=== PATIENT | male | born 1955 | race Caucasian/White ===

== ENCOUNTER 2016-12-07 03:23 | Emergency (ER) | payer OTHER ==
[2016-12-07 04:28] LABS: BILIRUBIN NEGATIVE (NEGATIVE); BLOOD 3+ Ery/uL (NEGATIVE); CLARITY CLEAR (CLEAR); COLOR YELLOW (YELLOW); GLUCOSE (U) NORMAL (NORMAL); KETONE (U) TRACE mg/dL (NEGATIVE); LEUKOCYTES NEGATIVE Leu/uL (NEGATIVE); NITRITE NEGATIVE (NEGATIVE); PROTEIN NEGATIVE (NEGATIVE); SPECIFIC GRAVITY 1.025 (1.001-1.030); pH 5.5 (5.0-9.0)
[2016-12-07 04:35] LABS: MUCOUS LARGE
[2016-12-07 04:55] LABS: BASOPHIL 0.3 % (0-2); EOSINOPHIL 4.2 % (0-5); HCT 43.1 % (42.0-52.0); LYMPHOCYTE 35.4 % (15-48); MCH 33.1 pg (25.0-31.0); MCHC 34.8 g/dL (32.0-36.0); MCV 95.1 fL (78.0-100.0); MONOCYTE 14.4 % (0-12); MPV 10.3 fL (6.0-9.5); NEUTROPHIL 45.7 % (41-80); PLT 196 K/uL (150-400); RBC 4.53 M/uL (4.70-6.00); RDW 13.5 % (11.5-14.0); WBC 6.2 K/uL (4.0-10.5)
[2016-12-07 05:11] LABS: ALBUMIN 4.2 g/dL (3.4-4.8); BILIRUBIN - TOTAL 0.6 mg/dL (0.1-1.0); CREATININE 0.8 mg/dL (0.7-1.2); GLOBULIN (CALCULATION) 2.5 g/dL (2.2-4.2); TOTAL PROTEIN 6.7 g/dL (6.4-8.3)
== END 2016-12-07 06:30 | disposition home or self-care (01) ==
LOC: FER 03:23
PROVIDERS: Emergency Medicine Emergency Medical Services
DX: N13.2 Hydronephrosis with renal and ureteral calculous obstruction (principal); I25.2 Old myocardial infarction; E86.9 Volume depletion, unspecified; Z79.82 Long term (current) use of aspirin; Z79.899 Other long term (current) drug therapy; Z88.5 Allergy status to narcotic agent; Z88.2 Allergy status to sulfonamides; Z87.442 Personal history of urinary calculi; Z95.5 Presence of coronary angioplasty implant and graft
CPT/HCPCS: 36415; 80053; 81001; 85025; 86403; 87077; 87088; J1885; J2270; J2405